=== PATIENT | female | born 1985 | race Caucasian/White ===

== ENCOUNTER → 2024-10-15 13:44 | Outpatient (REF) | payer OTHER, SELFPAY | LOC: HWRAD 13:44 | PROVIDERS: ATTENDING PHYSICIAN Obstetrics & Gynecology | DX: Z34.91 Encounter for supervision of normal pregnancy, unspecified, first trimester (principal); Z36.9 Encounter for antenatal screening, unspecified | CPT/HCPCS: 76801 ==

== ENCOUNTER 2025-05-21 05:07 | Inpatient (IN) | payer OTHER, SELFPAY ==
[2025-05-21 05:17] VITALS: BP 115/69; BMI 30.7
[2025-05-21] MEDS: STADOL 1 MG IV (06:27)
[2025-05-21] MEDS: LR 1000 IV ×2 (06:28→07:13)
[2025-05-21 06:48] LABS: Hematocrit 37.0 % (37.0-47.0); Hemoglobin 12.3 g/dL (12.0-16.0); Mean Corp Hgb Conc. 33.2 g/dL (33.0-37.0); Mean Corpuscular Volume 93.2 fL (81.0-99.0); Nucleated Red Blood Cells % 0 %; Platelet Count 207 10^3/uL (130-400); Red Cell Dist. Width 12.1 % (11.5-14.5)
[2025-05-21] MEDS: SUBLIMAZE 100 MCG EPIDURAL (06:50)
[2025-05-21] MEDS: FENTANYL/BUPIVACAINE 100 EPIDURAL (06:50)
[2025-05-21] MEDS: TRANEXAMIC ACID 100 IV (08:22)
[2025-05-21] MEDS: MOTRIN 600 MG PO ×2 (18:02→23:48)
[2025-05-21] MEDS: COLACE 100 MG PO (20:23)
[2025-05-22] MEDS: MOTRIN 600 MG PO ×3 (05:36→22:08)
[2025-05-22 06:16] LABS: Hematocrit 31.8 % (37.0-47.0); Hemoglobin 10.5 g/dL (12.0-16.0)
[2025-05-22] MEDS: COLACE 100 MG PO ×2 (09:13→22:08)
[2025-05-22] MEDS: PRENATAL PLUS 1 TABLET PO (09:13)
[2025-05-22] MEDS: TYLENOL 650 MG PO (12:47)
[2025-05-23] MEDS: MOTRIN 600 MG PO (06:21)
[2025-05-23] MEDS: PRENATAL PLUS 1 TABLET PO (09:07)
[2025-05-23] MEDS: COLACE 100 MG PO (09:07)
[2025-05-27 16:10] LABS: Syphilis/T. pallidum Ab Reflex Negative (Negative)
== END 2025-05-23 15:31 | disposition home or self-care (01) | DRG 807 ==
LOC: LDRP 05:07
PROVIDERS: Obstetrics & Gynecology; ADMITTING PHYSICIAN Obstetrics & Gynecology; FAMILY PHYSICIAN Internal Medicine
PROC: 10E0XZZ Delivery of Products of Conception, External Approach (ICD-10-PCS; 2025-05-21)
PROC: 0KQM0ZZ Repair Perineum Muscle, Open Approach (ICD-10-PCS; 2025-05-21)
DX: O77.0 Labor and delivery complicated by meconium in amniotic fluid (principal); Z37.0 Single live birth; Z3A.39 39 weeks gestation of pregnancy; O69.2XX0 Labor and delivery complicated by other cord entanglement, with compression, not applicable or unspecified; O70.1 Second degree perineal laceration during delivery; Z82.49 Family history of ischemic heart disease and other diseases of the circulatory system
CPT/HCPCS: 36415; 85014; 85018; 85025; 86780; 86850; 86900; 86901; 88307